=== PATIENT | female | born 1965 | race Caucasian/White ===

== ENCOUNTER 2016-09-28 13:01 | Emergency (ER) | payer OTHER ==
[~2016-09-28] VITALS: Ht 175.3 cm; Wt 102.3 kg
[2016-09-28 13:03] VITALS: BP 154/104; PULSE 80; RESP 20; O2SAT 97
--- NOTE | 2016-09-28 15:26 | ED.REPORT ---
HPI-General Illness Date of Service Sep 28, 2016 ED Provider: Derrick Geller MD A 51 year old female with a history of border-line diabetes, hypertension, and hyperlipidemia presents to the ED from Urgent Care for a sudden-onset headache with photophobia onset last night while bending over. The patient also reports nasal congestion over the past week and LUQ abdominal pain onset one month ago. This pain is exacerbated with laying down. She has taken Tylenol with no relief. Nursing Notes Stated Complaint: HEADACHE/HYPERTENSION-SENT FROM Chief Complaint: General Complaint Nursing Notes Reviewed: Yes Allergies: Coded Allergies: codeine (Verified Allergy, Unknown, ITCHY, 09/28/16) General Time Seen by MD: 15:21 Chief Complaint Headache Hx Obtained From: Patient Arrived By: Walk-in Sudden in Onset?: Yes Onset Occurred: 9 - 12 hours ago Symptom Duration: Since onset Location: : Abdomen (LUQ): Head Quality: Painful Severity: Current: Moderate Severity: Maximum: Moderate Associated with: Reports: Abdominal pain (LUQ), Congestion, Denies: Fever Pertinent Negative: Relieved by nothing Context Related History: Reports Diabetes mellitus (Borderline) Recent Healthcare: Recent doctor visit Similar Sx Previous: No Past Medical History Past Medical History Pre-diabetic on Metformin Hyperlipidemia Hypertension Past Surgical History None reported Family History Sister had heart attack Smoking History Never Smoker Social History Moved from [place] recently 09/28/16 Other Social History: Good social support, From out of town Occupation Works at [employer] Ambulatory Status Independent Review of Systems Full Review of Systems Constitutional: Denies: Fever Eyes: Reports: Photophobia Ears / Nose / Throat: Reports: Nasal congestion GI: Reports: Abdominal pain (LUQ), Denies: Vomiting Neurologic: Reports: Headache Complete sys rev & neg: except as marked. Physical Exam Vital Signs Vital Signs Date Time Temp Pulse Resp B/P Pulse Ox O2 Delivery O2 Flow Rate FiO2 09/28/16 13:03 36.0 80 20 154/104 97 Room Air Initial VS: Unavailable Cardiovascular: Regular rate & rhythm, Heart sounds normal Abdomen / GI: Soft, Non-tender Skin: Warm, Dry, No cyanosis Neurologic: Alert, Oriented, Nonfocal Psychiatric: Mood/affect normal, Behavior normal, Normal thought content General/Constitutional: Awake, Alert Head / Eyes: Atraumatic, Normocephalic, EOMI Pupils: Positive: Photophobia L, Photophobia R Respiratory / Chest: Breath sounds NL, Breath sounds = bilat, No respiratory distress, No chest tenderness Interpretation & Diagnostics Lab Results Interpretation Result Diagram: 09/28/16 1559 09/28/16 1559 Test 09/28/16 15:59 White Blood Count 6.7th/mm3 (3.8-10.1) Red Blood Count 3.98mil/mm3 (3.90-5.20) Hemoglobin 11.7g/dL (12.0-15.6) Hematocrit 35.1% (35.0-46.0) Mean Corpuscular Volume 88.2fL (81-100) Mean Corpuscular Hemoglobin 29.4pg (27.0-35.0) Mean Corpuscular Hemoglobin Concent 33.3% (32.0-37.0) Red Cell Distribution Width 12.8% (12.3-15.4) Platelet Count 254bil/L (150-400) Neutrophils (%) (Auto) 52.3% (40-74) Lymphocytes (%) (Auto) 39.1% (14-46) Monocytes (%) (Auto) 5.3% (4-12) Eosinophils (%) (Auto) 2.8% (0-5) Basophils (%) (Auto) 0.4% (0-3) Sodium Level 140mEq/L (134-144) Potassium Level 3.9mEq/L (3.5-5.2) Chloride Level 103mEq/L (97-108) Carbon Dioxide Level 25mmol/L (18-29) Blood Urea Nitrogen 10mg/dL (6-24) Creatinine 0.53mg/dL (0.57-1.00) Estimat Glomerular Filtration Rate 175mL/min (>59) Glucose Level 85mg/dL (60-99) Calcium Level 9.0mg/dL (8.5-10.1) Total Bilirubin 0.2mg/dL (0.0-1.2) Aspartate Amino Transf (AST/SGOT) 49U/L (0-50) Alanine Aminotransferase (ALT/SGPT) 43U/L (0-32) Alkaline Phosphatase 84U/L (25-150) Troponin T < 0.010ug/L (0.0-0.011) Total Protein 6.8g/dL (6.4-8.4) Albumin 4.0g/dL (3.4-5.0) ECG Interpretation Time: 13:18 Interpreted by: ED physician Normal ECG Interpretation: Normal ECG w/ rate of... (79), Normal sinus rhythm CT Head Interpretation IMPRESSION: No acute intracranial abnormality. Dictated by: Malachi Morales M.D. on 09/28/2016 at 15:59 Study: Head CT no contrast Interpretation / Wet Read by: Interpret - ED physician CT Chest Interpretation IMPRESSION: Normal for age, source of chest pain is not found. Dictated by: Luiz Suárez M.D. on 09/28/2016 at 16:21 Study type: Chest CT w contrast Interpretation / Wet Read by: Interpret - Radiologist Re-Eval/Medical Decision Time of Eval: 16:50 Patient Status: Condition improved, Pain improved Re-Evaluation/Progress Note: Discussed with patient CT, x-ray, and lab results, diagnosis, and plan for discharge. Follow-up and return to the ER instructions given. Patient agrees with plan for care and all questions were addressed. Counseled Regarding: Diagnosis, Lab results, Need for follow-up, When/why to return to ED Discharge & Departure Primary Impression: Severe headache Additional Impression: Chest pain Chest pain type: unspecified Qualified Code: R07.9 - Chest pain, unspecified Disposition: Home Discharge Condition All VS Reviewed: Yes Condition: Improved Patient Instructions: Acute Headache (ED) Additional Instructions: Thank you for entrusting us with your care. I am glad you are feeling somewhat better. I have offered you a lumbar puncture to more definitively exclude a subarachnoid hemorrhage (ruptured brain aneurysm), which we have not completely excluded with CT, but you have declined. Call your primary care provider tomorrow for a follow-up appointment next week. I recommended further evaluation for the chest pain you have been experiencing. Return to the ER with any new or worsening symptoms. Referrals: [facility] Scrjeffery Attestation Portions of this note were transcribed by Claudia Ramos. I, Dr. Geller, personally performed the history, physical exam, and medical decision-making; I reviewed and confirmed the accuracy of the information in the transcribed note. Signed by: Vito Orellana, 09/28/2016, 16:54 copies to: [facility] Derrick Geller MD Sep 28, 2016 15:25 CLAUDIA RAMOS Sep 28, 2016 15:45
[2016-09-28] MEDS ORDERED: 0.9% Sodium Chloride 1,000 ML IV ONE (15:39)
[2016-09-28] MEDS ORDERED: Dexamethasone 10 mg/mL Inj IVPUSH ONE (15:40)
[2016-09-28] MEDS ORDERED: MetoCLOpramide 5 mg/mL 2 mL Inj IVPUSH ONE (15:40)
--- NOTE | 2016-09-28 16:02 | DRSVH ---
PROCEDURE: CT BRAIN WITHOUT CONTRAST ([id number]) INDICATIONS: severe sudden SMITH TECHNIQUE: Noncontrast 4.5 mm thick angled axial sections acquired from the foramen magnum to the vertex, with c oronal reformats. COMPARISON: None. FINDINGS: Image quality: Excellent. CSF spaces: Basal cisterns are patent. No extra-axial fluid collections. The ventricles are symmet elizabeth in size and shape. Brain: No intracranial bleeds or masses. There is cerebral volume loss for age, with resultant vent ricular and sulcal prominence. There are periventricular and deep white matter chronic small vessel ischemic changes. There is intracranial internal carotid artery atherosclerosis. Skull and face: Calvarium and visualized facial bones appear intact, without suspicious lesions. Sinuses: Visualized sinuses and mastoids are clear. IMPRESSION: No acute intracranial abnormality. Dictated by: Malachi Morales M.D. on 09/28/2016 at 15:59 Approved by: Malachi Morales M.D. on 09/28/2016 at 16:00
[2016-09-28 16:16] LABS: BASOPHILS % (AUTO) 0.4 % (0-3); EOSINOPHILS % (AUTO) 2.8 % (0-5); MONOCYTES % (AUTO) 5.3 % (4-12); Mean Corpuscular Hemoglobin 29.4 pg (27.0-35.0); Mean Corpuscular Volume 88.2 fL (81-100); NEUTROPHILS % (AUTO) 52.3 % (40-74); Platelet Count 254 bil/L (150-400)
--- NOTE | 2016-09-28 16:23 | DRSVH ---
PROCEDURE: X-RAY CHEST, TWO VIEWS ([id number]) INDICATIONS: chest pain TECHNIQUE: 2 views of the chest were acquired. COMPARISON: None. FINDINGS: Surgical changes and devices: None. Lungs and pleura: No pleural effusions or pneumothorax. Lungs are clear. Mediastinum: Mediastinal contours are normal. Heart size is normal. Bones and chest wall: No suspicious bony abnormalities. Soft tissues appear unremarkable. IMPRESSION: Normal for age, source of chest pain is not found. Dictated by: Luiz Suárez M.D. on 09/28/2016 at 16:21 Approved by: Luiz Suárez M.D. on 09/28/2016 at 16:21
[2016-09-28 16:49] LABS: TROPONIN T < 0.010 ug/L (0.0-0.011)
[2016-09-28 17:11] VITALS: BP 142/78; RESP 19
== END 2016-09-28 17:12 | disposition home or self-care (01) ==
LOC: SED 13:01
DX: R51 Headache (principal); R07.9 Chest pain, unspecified; X50.1XXA Overexertion from prolonged static or awkward postures, initial encounter; Y93.89 Activity, other specified; Y92.9 Unspecified place or not applicable; Y99.8 Other external cause status; R09.81 Nasal congestion; R10.12 Left upper quadrant pain; R73.03 Prediabetes; E78.5 Hyperlipidemia, unspecified; I10 Essential (primary) hypertension; Z88.5 Allergy status to narcotic agent; Z79.84 Long term (current) use of oral hypoglycemic drugs
CPT/HCPCS: 36415; 70450; 71020; 80053; 84484; 85025; 93005; 96361; 96374; 96375; 99285; J1100; J1200; J2765; J7030